=== PATIENT | male | born 1985 | race Hispanic/Latino ===

== ENCOUNTER 2018-06-27 18:45 | Emergency (ER) | payer SELFPAY ==
[~2018-06-27] VITALS: Ht 182.9 cm; Wt 89.0 kg
[2018-06-27] MEDS ORDERED: IBUPROFEN600 MG PO (20:11)
[2018-06-27] MEDS ORDERED: KEFLEX500 M1 PO (20:11)
[2018-06-27 20:17] VITALS: BP 135/78
== END 2018-06-27 20:17 | disposition home or self-care (01) | DRG 607 ==
LOC: ED 18:45
DX: L72.8 Other follicular cysts of the skin and subcutaneous tissue (principal); F17.210 Nicotine dependence, cigarettes, uncomplicated

== ENCOUNTER 2019-10-08 10:10 | Emergency (ER) | payer BC ==
[~2019-10-08] VITALS: Ht 182.9 cm; Wt 101.0 kg
[~2019-10-08 10:10] MED LIST: IBUPROFEN600 MG PO; KEFLEX500 M1 PO
[2019-10-08 10:58] LABS: HEMATOCRIT 48.9 % (39.0-50.0); HEMOGLOBIN 17.1 g/dl (14.0-18.0); IMMATURE GRANULOCYTES 0.4 % (0.0-5.0); MEAN CELL VOLUME 93.5 fL CALC (80.0-100.0); MEAN CORPUSCULAR HGB 32.7 pG CALC (26.0-32.0); NEUT# 4.94 thou/uL (1.82-7.42); RED BLOOD COUNT 5.23 mill/uL (4.70-6.10)
[2019-10-08 10:59] LABS: URINE BILIRUBIN - DIPSTICK NEGATIVE (NEGATIVE); URINE BLOOD DIPSTICK NEGATIVE (NEGATIVE); URINE COLOR YELLOW; URINE GLUCOSE - DIPSTICK NEGATIVE (NEGATIVE); URINE KETONE NEGATIVE (NEGATIVE); URINE LEUK ESTERASE NEGATIVE (NEGATIVE); URINE NITRITE - DIPSTICK NEGATIVE (Negative); URINE PROTEIN - DIPSTICK NEGATIVE (NEG-TRACE); URINE SPECIFIC GRAVITY 1.015
[2019-10-08 11:15] LABS: ALBUMIN 4.8 g/dL (3.2-5.0); ALKALINE PHOSPHATASE 113 u/l (38-126); ANION GAP 15 (6-22 (CALC)); BILIRUBIN, TOTAL 0.5 mg/dL (0.0-1.4); BUN 16 mg/dL (9-20); BUN/CREATININE RATIO 20 (12-20 (CALC)); CARBON DIOXIDE 26 mmol/l (22-30); CHLORIDE 103 mmol/l (95-108); CREATININE 0.8 mg/dL (0.7-1.3); GFR > 60 ML/MIN (>=60 (CALC)); GFR FOR AFR.AMER. > 60 ML/MIN (>=60 (CALC)); LIPASE 136 u/l (23-300); POTASSIUM 3.8 mmol/l (3.5-5.1); SGOT/AST 29 u/l (17-59); SODIUM 141 mmol/l (137-146); TOTAL PROTEIN 8.1 g/dL (6.3-8.2)
[2019-10-08 13:15] VITALS: BP 142/74
== END 2019-10-08 13:15 | disposition home or self-care (01) | DRG 392 ==
LOC: ED 10:10
PROVIDERS: Family Medicine
DX: K52.9 Noninfective gastroenteritis and colitis, unspecified (principal); F17.210 Nicotine dependence, cigarettes, uncomplicated
CPT/HCPCS: Q9967